=== PATIENT | male | born 1975 | race African-American/Black ===

== ENCOUNTER 2020-02-01 13:39 | Emergency (ER) | payer MEDICARE ==
[~2020-02-01] VITALS: Ht 157.5 cm; Wt 59.1 kg
[2020-02-01 13:58] VITALS: BP 123/89; Ht 157.5 cm; Wt 59.1 kg
[2020-02-01] MEDS ORDERED: DEPRESSION MEDS (13:59)
[2020-02-01] MEDS ORDERED: HIV MEDS (13:59)
[2020-02-01] MEDS ORDERED: STOOL SOFTENER100 M1 PO (14:45)
[2020-02-01] MEDS ORDERED: ANUSOL-HC25 MG RC (14:45)
== END 2020-02-01 15:15 | disposition home or self-care (01) ==
LOC: D.ER 13:39
DX: K64.1 Second degree hemorrhoids (principal); B20 Human immunodeficiency virus [HIV] disease

== ENCOUNTER 2020-05-17 08:45 | Emergency (ER) | payer MEDICARE ==
[~2020-05-17] VITALS: Ht 157.5 cm; Wt 59.1 kg
[~2020-05-17 08:45] MED LIST: ANUSOL-HC25 MG RC; DEPRESSION MEDS; HIV MEDS; STOOL SOFTENER100 M1 PO
[2020-05-17 08:53] VITALS: Ht 157.5 cm; Wt 59.1 kg
[2020-05-17] MEDS ORDERED: ACETAMINOPHEN500 M1 PO (09:40)
[2020-05-17] MEDS ORDERED: KEFLEX500 MG PO (09:40)
[2020-05-17] MEDS ORDERED: CLEOCIN HCL300 MG PO (09:40)
[2020-05-17] MEDS ORDERED: IBUPROFEN800 MG PO (09:40)
[2020-05-17] MEDS ORDERED: CYCLOBENZAPRINE10 MG PO (09:40)
[2020-05-17 10:25] VITALS: BP 139/74
== END 2020-05-17 10:25 | disposition home or self-care (01) ==
LOC: D.ER 08:45
DX: T23.271A Burn of second degree of right wrist, initial encounter (principal); M25.531 Pain in right wrist; B20 Human immunodeficiency virus [HIV] disease; X15.8XXA Contact with other hot household appliances, initial encounter; Y93.9 Activity, unspecified; Y92.9 Unspecified place or not applicable